=== PATIENT | male | born 1945 | race Caucasian/White ===

== ENCOUNTER 2017-04-29 09:16 | Emergency (ER) ==
[2017-04-29 09:23] VITALS: BP 165/94; TEMP 98; BMI 29.0
--- NOTE | 2017-04-29 09:35 | ED.PDOC ---
General ED Provider: Dr. MIRIAN PAT Chief Complaint: Hand Laceration Stated Complaint: head laceration Time Seen by Physician: 09:30 (laceration of scalp no F/B) Mode of Arrival: Walk-In Information Source: Patient Exam Limitations: No limitations Primary Care Provider: FEI QUIÑONES Referred to ED by: Other (SHEET METAL EDGE CUT PT'S SCALP SEE PHOTOS) Nursing and Triage Documentation Reviewed and Agree: Yes (NO LOC, NO NECK PAIN) Reviewed sepsis parameters & appropriate labs ordered?: Yes (HEAD INJURY) System Inflammatory Response Syndrome: Not Applicable Sepsis Protocol: For patient's 13 years and over: Temp is 96.8 and below OR 101 and greater Pulse >90 BPM Resp >20/minute Acutely Altered Mental Status Are patient's symptoms suggestive of a new infection, such as: -Pneumonia -Skin, Soft Tissue -Endocarditis -UTI -Bone, Joint Infection -Implantable Device -Acute Abdominal Infection -Wound Infection -Meningitis -Blood Stream Catheter Infection -Unknown System Inflammatory Response Syndrome: Not Applicable Review of Systems - Review Of Systems Constitutional: Reports: No symptoms Eyes: Reports: No symptoms Ears, Nose, Mouth, Throat: Reports: No symptoms Respiratory: Reports: No symptoms Cardiac: Reports: No symptoms GI: Reports: No symptoms : Reports: No symptoms Musculoskeletal: Reports: No symptoms Skin: Reports: Other (LACERATION SCALP) Neurological: Reports: No symptoms Endocrine: Reports: No symptoms Hematologic/Lymphatic: Reports: No symptoms All Other Systems: Reviewed and Negative Past Medical History - Past Medical History Previously Healthy: Yes Endocrine: Reports: None Cardiovascular: Reports: Hypertension Respiratory: Reports: None Hematological: Reports: None Gastrointestinal: Reports: GERD Genitourinary: Reports: None Neuro/Psych: Reports: None Musculoskeletal: Reports: Gout Cancer: Reports: None - Surgical History General Surgical History: Reports: None - Family History Family History: Reports: None - Social History Smoking Status: Never smoker Hx Substance Use: No Alcohol Screening: None - Immunizations Tetanus Shot up to Date: No Physical Exam - Physical Exam Appearance: Well-appearing, No pain distress, Well-nourished Eyes: ANDIE, EOMI, Conjunctiva clear ENT: Ears normal, Nose normal, Oropharynx normal Respiratory: Airway patent, Breath sounds clear, Breath sounds equal, Respirations nonlabored Cardiovascular: RRR, Pulses normal, No rub, No murmur GI/: Soft, Nontender, No masses, Bowel sounds normal, No Organomegaly Musculoskeletal: Normal strength, ROM intact, No edema, No calf tenderness Skin: Warm, Dry (1CM LACERATION SCALP NO F/B ) Neurological: Sensation intact, Motor intact, Reflexes intact, Cranial nerves intact, Alert, Oriented Psychiatric: Affect appropriate, Mood appropriate Procedures - Laceration/Wound Repair No standard instances Wound Description: Linear Wound Length (cm): 1CM Wound Width: 2MM Wound Depth: 1MM Wound Explored: Clean Wound Irrigated: No Wound Prep: Hibiclens Wound Repaired With: Dermabond Critical Care Note - Critical Care Note Total Time (mins): 0 Course - Course Vital Signs: Temp Pulse Resp BP Pulse Ox 04/29/17 09:17 98.0 F 79 20 165/94 H 96 Departure - Departure Time of Disposition: 09:36 Disposition: HOME SELF-CARE Discharge Problem: Laceration of scalp Qualifiers: Encounter type: initial encounter Qualified Code(s): S01.01XA - Laceration without foreign body of scalp, initial encounter Instructions: Laceration (ED), Skin Adhesive Care (ED), Head Injury (ED) Condition: Good Pt referred to PMD for follow-up: Yes IPMP verified?: No Additional Instructions: Please call your Family Physician as soon as possible to schedule a follow-up appointment. Allergies/Adverse Reactions: Allergies Sulfa (Sulfonamide Antibiotics) Adverse Reaction (Unverified 03/05/16 10:25) Home Medications: Ambulatory Orders Allopurinol [Zyloprim] 100 mg PO BID 12/24/14 Amlodipine/Atorvastatin [Amlodipine-Atorvast 5-20 mg] 1 tab PO DAILY 12/24/14 Omeprazole [Prilosec] 40 mg PO DAILY 12/24/14 Avinger-3 Acid Ethyl Esters [Lovaza] 1 gm PO BID 04/29/17 Disposition Discussed With: Patient
[2017-04-29] MEDS ORDERED: TENIVAC IM ONE (09:38)
== END 2017-04-29 09:54 | disposition home or self-care (01) ==
LOC: ED 09:16
DX: S01.01XA Laceration without foreign body of scalp, initial encounter (principal); W26.8XXA Contact with other sharp object(s), not elsewhere classified, initial encounter
CPT/HCPCS: 90714; 96372; 99283

== ENCOUNTER 2018-06-09 09:01 | Day surgery (SDC) | payer OTHER ==
[2018-06-09 09:24] VITALS: TEMP 97.7
[2018-06-09] MEDS ORDERED: LIDOCAINE 1% 20 ML MDV ID STA (09:25)
[2018-06-09] MEDS ORDERED: DIPRIVAN 20 ML VIAL IVP ONE (10:00)
[2018-06-09] MEDS ORDERED: VERSED ONE (10:00)
[2018-06-09 10:48] VITALS: BP 148/68
--- NOTE | 2018-06-10 11:44 | OP ---
PROCEDURE: COLONOSCOPY TO THE CECUM WITH SNARE POLYPECTOMY. ENDOSCOPIST: Juhi SON M.D. INDICATION: HISTORY OF POLYPS. INSTRUMENT: [employer]-190. MEDICATION: PER ANESTHESIA. PROCEDURE: The patient was positioned for colonoscopy. The digital rectal exam was negative. The colonoscope was inserted through the anus and advanced to the cecum. The cecum was identified using the ileocecal valve and the appendiceal orifice as landmarks. The scope was slowly withdrawn through an adequately prepped colon. [place] Bowel Prep Score = 9. Small polyps removed at the hepatic flexure 70 cm and 30 cm using cold snare polypectomy. All were 5 mm or less in dimension. Diverticulosis noted in the left colon. Retroflex exam is otherwise normal. Withdrawal time 8 minutes and 2 seconds. PLAN: 1. Suggest repeat exam in 3 to 5 years after reviewing pathology. CC: DR. FEI NEELY
== END 2018-06-09 11:45 | disposition home or self-care (01) ==
LOC: SURG 09:01
PROVIDERS: ATTEND Internal Medicine Gastroenterology
DX: Z86.010 Personal history of colon polyps (principal); D12.4 Benign neoplasm of descending colon; D12.3 Benign neoplasm of transverse colon; D12.5 Benign neoplasm of sigmoid colon